=== PATIENT | female | born 1945 | race Caucasian/White ===

== ENCOUNTER 2016-11-12 16:05 | Emergency (ER) | payer MEDICARE, OTHER ==
[~2016-11-12 16:05] MED LIST: AMLO5 PO; ATOR40TA PO; BUPR300T PO; LEVA500T PO; LISI-363 PO; METO100T9 PO; OMEP20TA39 PO; OXYB5TAB PO; PRED20 PO
[2016-11-12 16:08] VITALS: BP 154/91; PULSE 103; RESP 24; TEMP 98.2; O2SAT 90
--- NOTE | 2016-11-12 16:24 | PD ---
HPI Chief Complaint: Respiratory Symptoms Time Seen by Provider: 16:20 Travel History International Travel<30 days: No Contact w/Intl Traveler<30days: No Traveled to known affect area: No History of Present Illness HPI 71-year-old female with history of COPD, CHF, on home O2 at night and intermittently as needed throughout the day, here for evaluation of shortness of breath. She was breath started at around 3:00 AM. Patient feels as though she is wheezing and is having chest tightness. She did have some productive coughing earlier today with clear sputum. No hemoptysis. No fevers or chills. Dyspnea is at rest, worse with exertion. No history of DVT or PE. PFSH Social History Alcohol Use: No Tobacco Use: Yes Substance Use: No Allergies-Medications (Allergen,Severity, Reaction): Coded Allergies: No Known Allergies (Unverified , 11/12/16) Reported Meds & Prescriptions Reported Meds & Active Scripts Active Reported Calcium 1000 + D (Calcium Carbonate-Cholecalciferol) 1,000-800 Mg-Unit Tab 1 Tab PO DAILY Ditropan (Oxybutynin Chloride) 5 Mg Tab 5 Mg PO Q12HR Atorvastatin (Atorvastatin Calcium) 40 Mg Tab 40 Mg PO HS Metoprolol Succinate ER 24 HR (Metoprolol Succinate) 25 Mg Tab 25 Mg PO DAILY Duoneb (Ipratropium-Albuterol Neb) 0.5-2.5 Mg/3 Ml Neb 1 Nebule INH BID Advair Diskus Inh (Fluticasone-Salmeterol Inh) 500-50 Mcg/Blist Aer 1 Puff INH BID Rinse mouth after use. Spiriva Handihaler (Tiotropium Inh) 18 Mcg Cap 18 Mcg INH DAILY 1 capsule = 18 mcg Lisinopril 20 Mg Tab 20 Mg PO DAILY Bupropion HCl ER 24 HR (Bupropion HCl) 150 Mg Tab 150 Mg PO DAILY Amlodipine (Amlodipine Besylate) 5 Mg Tab 5 Mg PO DAILY Omeprazole 20 Mg Tab 20 Mg PO DAILY Review of Systems Except as stated in HPI: all other systems reviewed are Neg Physical Exam Narrative GENERAL: Well-developed, well-nourished, moderate respiratory distress, speaking full sentences. SKIN: Focused skin assessment warm/dry. No rash. HEAD: Atraumatic. Normocephalic. EYES: Pupils equal and round. No scleral icterus. No injection or drainage. ENT: Mucous membranes pink and moist. NECK: Trachea midline. No JVD. CARDIOVASCULAR: Regular rate and rhythm. RESPIRATORY: Moderate respiratory distress. Speaking full sentences. Inspiratory and expiratory wheezes bilaterally. No rales or rhonchi. GASTROINTESTINAL: Abdomen soft, non-tender, nondistended. MUSCULOSKELETAL: No obvious deformities. No clubbing. No cyanosis. No edema. NEUROLOGICAL: Awake and alert. No obvious cranial nerve deficits. Motor grossly within normal limits. Normal speech. PSYCHIATRIC: Appropriate mood and affect; insight and judgment normal. Data Data Last Documented VS Vital Signs Date Time Temp Pulse Resp B/P Pulse Ox O2 Delivery O2 Flow Rate FiO2 11/12/16 18:32 86 18 125/67 95 Nasal Cannula 2 11/12/16 16:27 98.2 Orders Complete Blood Count With Diff (11/12/16 16:20) Comprehensive Metabolic Panel (11/12/16 16:20) B-Type Natriuretic Peptide (11/12/16 16:20) D-Dimer (11/12/16 16:20) Act Partial Throm Time (Ptt) (11/12/16 16:20) Prothrombin Time / Inr (Pt) (11/12/16 16:20) Ckmb (Isoenzyme) Profile (11/12/16 16:20) Troponin I (11/12/16 16:20) Iv Access Insert/Monitor (11/12/16 16:20) Electrocardiogram (11/12/16 16:20) Ecg Monitoring (11/12/16 16:20) Oximetry (11/12/16 16:20) Oxygen Administration (11/12/16 16:20) Chest, Single Ap (11/12/16 16:20) Sodium Chloride 0.9% Flush (Ns Flush) (11/12/16 16:30) Methylprednisolone So Succ Inj (Solumedr (11/12/16 16:30) Albuterol-Ipratropium Neb (Duoneb Neb) (11/12/16 16:30) CKMB (11/12/16 16:45) CKMB% (11/12/16 16:45) Levofloxacin (Levaquin) (11/12/16 17:30) Labs Laboratory Tests Test 11/12/16 16:45 White Blood Count 8.2 TH/MM3 Red Blood Count 4.43 MIL/MM3 Hemoglobin 13.3 GM/DL Hematocrit 39.8 % Mean Corpuscular Volume 89.8 FL Mean Corpuscular Hemoglobin 30.0 PG Mean Corpuscular Hemoglobin 33.5 % Concent Red Cell Distribution Width 13.3 % Platelet Count 257 TH/MM3 Mean Platelet Volume 8.1 FL Neutrophils (%) (Auto) 55.5 % Lymphocytes (%) (Auto) 26.6 % Monocytes (%) (Auto) 6.8 % Eosinophils (%) (Auto) 10.5 % Basophils (%) (Auto) 0.6 % Neutrophils # (Auto) 4.5 TH/MM3 Lymphocytes # (Auto) 2.2 TH/MM3 Monocytes # (Auto) 0.6 TH/MM3 Eosinophils # (Auto) 0.9 TH/MM3 Basophils # (Auto) 0.0 TH/MM3 CBC Comment DIFF FINAL Differential Comment Prothrombin Time 10.7 SEC Prothromb Time International 1.0 RATIO Ratio Activated Partial 29.0 SEC Thromboplast Time D-Dimer Quantitative (PE/DVT) 0.41 MG/L FEU Sodium Level 145 MEQ/L Potassium Level 3.6 MEQ/L Chloride Level 109 MEQ/L Carbon Dioxide Level 27.7 MEQ/L Anion Gap 8 MEQ/L Blood Urea Nitrogen 15 MG/DL Creatinine 1.10 MG/DL Estimat Glomerular Filtration 49 ML/MIN Rate Random Glucose 123 MG/DL Calcium Level 8.8 MG/DL Total Bilirubin 0.3 MG/DL Aspartate Amino Transf 15 U/L (AST/SGOT) Alanine Aminotransferase 21 U/L (ALT/SGPT) Alkaline Phosphatase 87 U/L Total Creatine Kinase 116 U/L Creatine Kinase MB 3.0 NG/ML Troponin I LESS THAN 0.02 NG/ML B-Type Natriuretic Peptide 32 PG/ML Total Protein 7.0 GM/DL Albumin 3.7 GM/DL [facility] Medical Decision Making Medical Screen Exam Complete: Yes Emergency Medical Condition: Yes Medical Record Reviewed: Yes Differential Diagnosis COPD exacerbation, pneumonia, pneumothorax, ACS, pericarditis, PE, pneumonia, pulmonary edema/CHF Narrative Course Initial vital signs show heart rate 103, blood pressure 154/91, pulse ox 90% on room air, oral temp of 98.2F. CBC is unremarkable. CMP is unremarkable. Cardiac enzymes are negative. BNP is 32. D-dimer is negative at 0.41. Chest x-ray: Normal exam. The patient was given 3 DuoNeb treatments and 125 g of IV Solu-Medrol. On reassessment she reports feeling much improved. On physical exam she looks improved. She is no longer in respiratory distress. Lung sounds are clear and equal bilaterally. She was observed in the emergency department for another hour and symptoms remained improved. She was given a dose of Levaquin orally. She states she feels well enough to be discharged home and will follow up with her director of tax services Dr. Chance in the next 1-2 days. She was informed on when to return to the emergency department. She verbalizes understanding and agreement with plan. Diagnosis Primary Impression: COPD exacerbation Referrals: Primary Care Physician 3 days [employer] 2 days Additional Instructions: Follow-up with your director of tax services Dr. Chance in the next 1-2 days. Follow-up with your primary care physician this week. Take medications as prescribed. Return to the emergency department for worsening symptoms or any other concerns. Scripts Levofloxacin (Levaquin)500 Mg Tablet1 Tab PO DAILY 5 Days Prov:Nilay Quintero MD 11/12/16 Prednisone 50 Mg Tab50 Mg PO DAILY 5 Days Ref 0 Prov:Nilay Quintero MD 11/12/16 Disposition: 01 DISCHARGE HOME Condition: Stable Nilay Quintero MD Nov 12, 2016 16:24
[2016-11-12 16:27] VITALS: BP 178/72; PULSE 96; RESP 22; TEMP 98.2; O2SAT 95
[2016-11-12] MEDS ORDERED: methylPREDNISolone SOD SUCC 125 MG/2 ML VIAL IVP ONE (16:30)
[2016-11-12] MEDS ORDERED: SODIUM CHLORIDE 0.9% FLUSH 10 ML FLUSH IVF PRN (16:30)
[2016-11-12] MEDS: RESP: ALBUTEROL 2.5 MG/IPRATROPIUM 0.5 MG NEB (SCH) INH (16:34)
--- NOTE | 2016-11-12 16:40 | RADRPT ---
EXAM DATE/TIME: 11/12/2016 16:28 [facility] COMPARISON: CHEST SINGLE AP, February 01, 2016, 3:39. INDICATIONS : Shortness of breath. MEDICAL HISTORY : None. SURGICAL HISTORY : None. ENCOUNTER: Initial ACUITY: 1 day PAIN SCORE: 0/10 LOCATION: Bilateral chest FINDINGS: A single view of the chest demonstrates the lungs to be symmetrically aerated without evidence of mas s, infiltrate or effusion. The cardiomediastinal contours are unremarkable. Osseous structures are intact. CONCLUSION: Normal examination. Sohan Fofana MD on November 12, 2016 at 16:38 Board Certified Radiologist. This report was verified electronically.
[2016-11-12 16:54] VITALS: RESP 22; O2SAT 96
[2016-11-12 16:55] LABS: AUTOMATED NEUTROPHIL # 4.5 TH/MM3 (1.8-7.7); BASOPHIL % 0.6 % (0.0-2.0); EOSINOPHIL # 0.9 TH/MM3 (0-0.4); EOSINOPHIL % 10.5 % (0.0-4.0); HEMATOCRIT 39.8 % (35.0-46.0); LYMPH % 26.6 % (9.0-44.0); LYMPHOCYTE # 2.2 TH/MM3 (1.0-4.8); MEAN CELL VOLUME 89.8 FL (80.0-100.0); MEAN CORPUSCULAR HGB CONC 33.5 % (32.0-36.0); MONO % 6.8 % (0.0-8.0); NEUT % 55.5 % (16.0-70.0); PLATELET COUNT 257 TH/MM3 (150-450); RED BLOOD COUNT 4.43 MIL/MM3 (4.00-5.30); RED CELL DISTRIBUTION WIDTH 13.3 % (11.6-17.2); WHITE BLOOD COUNT 8.2 TH/MM3 (4.0-11.0)
[2016-11-12] MEDS ORDERED: OXYB5TAB10 PO (17:01)
[2016-11-12] MEDS ORDERED: BUPR150T3 PO (17:01)
[2016-11-12] MEDS ORDERED: OMEP20TA PO (17:01)
[2016-11-12] MEDS ORDERED: SPIRCAP INH (17:01)
[2016-11-12] MEDS ORDERED: LISI-515 PO (17:01)
[2016-11-12] MEDS ORDERED: AMLO5TAB2 PO (17:01)
[2016-11-12] MEDS ORDERED: METO25TA6 PO (17:01)
[2016-11-12] MEDS ORDERED: CALCTAB80 PO (17:01)
[2016-11-12] MEDS ORDERED: ATOR40TA16 PO (17:01)
[2016-11-12] MEDS ORDERED: IPRASOL INH (17:01)
[2016-11-12] MEDS ORDERED: ADVA500A INH (17:01)
[2016-11-12 17:02] LABS: HEMO FLAGS DIFF FINAL
[2016-11-12 17:03] LABS: CHLORIDE 109 MEQ/L (98-107); POTASSIUM 3.6 MEQ/L (3.5-5.1); SODIUM (NA) 145 MEQ/L (136-145)
[2016-11-12 17:07] LABS: ANION GAP 8 MEQ/L (5-15); BICARBONATE 27.7 MEQ/L (21.0-32.0); BLOOD UREA NITROGEN 15 MG/DL (7-18)
[2016-11-12 17:10] LABS: ALT (GPT) 21 U/L (10-53); AST (GOT) 15 U/L (15-37); GLOMERULAR FILTRATION RATE 49 ML/MIN (>89); PROTHROMBIN TIME - PATIENT 10.7 SEC (9.8-11.6)
[2016-11-12 17:11] LABS: TOTAL BILIRUBIN ADULT 0.3 MG/DL (0.2-1.0)
[2016-11-12 17:13] LABS: ALKALINE PHOSPHATASE 87 U/L (45-117); CREATINE KINASE 116 U/L (26-192)
[2016-11-12] MEDS ORDERED: LEVOFLOXACIN 500 MG TAB PO ONE (17:30)
[2016-11-12 17:32] VITALS: BP 157/64; PULSE 88; RESP 18; O2SAT 96
[2016-11-12 18:32] VITALS: BP 125/67; PULSE 86; RESP 18; O2SAT 95
[2016-11-12] MEDS ORDERED: PRED50 PO (18:43)
[2016-11-12] MEDS ORDERED: LEVA500T20 PO (18:43)
--- NOTE | 2016-11-13 19:02 | EKG ---
Date Performed: 11/12/2016 Time Performed: 16:31:46 PTAGE: 71 years EKG: Sinus rhythm POSSIBLE LEFT ATRIAL ENLARGEMENT NONSPECIFIC ST & T-WAVE ABNORMALITY BORDERLINE ECG PREVIOUS TRACING : 01/31/2016 01.35 Compared to the previous tracing, rate has decreased DOCTOR: Evin Gee Interpretating Date/Time 11/13/2016 19:00:19
== END 2016-11-12 19:20 | disposition home or self-care (01) ==
LOC: PHED 16:05
DX: J44.1 Chronic obstructive pulmonary disease with (acute) exacerbation (principal); I50.9 Heart failure, unspecified; Z99.81 Dependence on supplemental oxygen
CPT/HCPCS: 71010; 80053; 82550; 82552; 83880; 84484; 85025; 85379; 85610; 85730; 93005; 94640; 94664; 96374; 99285; J2930

== ENCOUNTER 2017-01-11 14:22 | Emergency (ER) | payer OTHER ==
[~2017-01-11] VITALS: Ht 172.7 cm; Wt 82.0 kg
[~2017-01-11 14:22] MED LIST changes: +ADVA500A INH; -AMLO5 PO; +AMLO5TAB2 PO; -ATOR40TA PO; +ATOR40TA16 PO; +BUPR150T3 PO; -BUPR300T PO; +CALCTAB80 PO; +IPRASOL INH; -LEVA500T PO; +LEVA500T20 PO; -LISI-363 PO; +LISI-515 PO; -METO100T9 PO; +METO25TA6 PO; +OMEP20TA PO; -OMEP20TA39 PO; -OXYB5TAB PO; +OXYB5TAB10 PO; -PRED20 PO; +PRED50 PO; +SPIRCAP INH
[2017-01-11 14:24] VITALS: BP 208/100; PULSE 109; RESP 24; TEMP 97.6; O2SAT 93
[2017-01-11 14:34] VITALS: BP 155/85; PULSE 89; RESP 24; TEMP 97.8; O2SAT 93
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
[2017-01-11] MEDS: RESP: ALBUTEROL 2.5 MG/IPRATROPIUM 0.5 MG NEB (SCH) INH (14:42)
[2017-01-11 14:43] VITALS: O2SAT 97
[2017-01-11 14:45] VITALS: PULSE 93; RESP 22; O2SAT 93
[2017-01-11] MEDS ORDERED: SODIUM CHLORIDE 0.9% FLUSH 10 ML FLUSH IVF PRN (14:45)
[2017-01-11] MEDS ORDERED: methylPREDNISolone SOD SUCC 125 MG/2 ML VIAL IV PUSH ONE (14:45)
[2017-01-11 15:04] LABS: AUTOMATED NEUTROPHIL # 6.6 TH/MM3 (1.8-7.7); BASOPHIL # 0.1 TH/MM3 (0-0.2); EOSINOPHIL # 0.3 TH/MM3 (0-0.4); EOSINOPHIL % 3.9 % (0.0-4.0); HEMATOCRIT 41.4 % (35.0-46.0); HEMO FLAGS DIFF FINAL; LYMPH % 14.3 % (9.0-44.0); LYMPHOCYTE # 1.2 TH/MM3 (1.0-4.8); MEAN CELL VOLUME 91.7 FL (80.0-100.0); MEAN CORPUSCULAR HEMOGLOBIN 30.8 PG (27.0-34.0); MEAN CORPUSCULAR HGB CONC 33.6 % (32.0-36.0); MONO % 3.8 % (0.0-8.0); PLATELET COUNT 240 TH/MM3 (150-450); RED BLOOD COUNT 4.52 MIL/MM3 (4.00-5.30); RED CELL DISTRIBUTION WIDTH 13.8 % (11.6-17.2); WHITE BLOOD COUNT 8.6 TH/MM3 (4.0-11.0)
--- NOTE | 2017-01-11 15:18 | RADRPT ---
EXAM DATE/TIME: 01/11/2017 14:46 [facility] COMPARISON: CHEST SINGLE AP, November 12, 2016, 16:28. INDICATIONS : Patient states she is feeling short of breath. MEDICAL HISTORY : None. SURGICAL HISTORY : None. ENCOUNTER: Initial ACUITY: 1 day PAIN SCORE: 0/10 LOCATION: Bilateral chest FINDINGS: Lungs are focally clear. Cardiomediastinal contours are satisfactory. No significant effusion suspect ed. CONCLUSION: No acute disease Pratik Boyd MD on January 11, 2017 at 15:15 Board Certified Radiologist. This report was verified electronically.
[2017-01-11 15:19] LABS: ALT (GPT) 22 U/L (10-53); ANION GAP 6 MEQ/L (5-15); AST (GOT) 13 U/L (15-37); BLOOD UREA NITROGEN 15 MG/DL (7-18); CHLORIDE 109 MEQ/L (98-107); GLOMERULAR FILTRATION RATE 49 ML/MIN (>89); POTASSIUM 4.2 MEQ/L (3.5-5.1); SODIUM (NA) 139 MEQ/L (136-145)
[2017-01-11 15:23] LABS: ALKALINE PHOSPHATASE 81 U/L (45-117); TOTAL BILIRUBIN ADULT 0.5 MG/DL (0.2-1.0)
[2017-01-11 15:33] LABS: CREATINE KINASE 74 U/L (26-192)
[2017-01-11 16:01] VITALS: BP 145/86; PULSE 88; RESP 20; TEMP 97.8; O2SAT 98
[2017-01-11] MEDS ORDERED: PRED10 PO (16:36)
[2017-01-11] MEDS ORDERED: ALBU0.08 NEB (16:36)
[2017-01-11] MEDS ORDERED: ZITHTAB PO (16:36)
[2017-01-11 17:40] VITALS: BP 130/71; TEMP 97.8
--- NOTE | 2017-01-11 20:56 | EKG ---
Date Performed: 01/11/2017 Time Performed: 14:50:37 PTAGE: 71 years EKG: Sinus rhythm NONSPECIFIC T-WAVE ABNORMALITY BORDERLINE ECG Compared to prior electrocardiogram, Nonspecific ST an d T wave abnormalities are less marked PREVIOUS TRACING : 11/12/2016 16.31 DOCTOR: Adrian Vazquez Interpretating Date/Time 01/11/2017 20:56:03
== END 2017-01-11 17:50 | disposition home or self-care (01) ==
LOC: NEPC 14:22
DX: J44.1 Chronic obstructive pulmonary disease with (acute) exacerbation (principal); I50.9 Heart failure, unspecified; I11.0 Hypertensive heart disease with heart failure; Z99.81 Dependence on supplemental oxygen
CPT/HCPCS: 71010; 80053; 82550; 83735; 83880; 84484; 85025; 93005; 94640; 94664; 96374; 99285; J2930